=== PATIENT | male | born 1945 | race Caucasian/White ===

== ENCOUNTER → 2019-05-14 09:12 | Outpatient (CLI) | payer OTHER, SELFPAY ==
[2019-05-14 10:41] LABS: Hemoglobin A1C% w Est Avg Glu 4.9 % (4.0-6.0)
== END ==
PROVIDERS: PCP Internal Medicine; Visit Provider Internal Medicine
DX: E11.9 Type 2 diabetes mellitus without complications (principal)
CPT/HCPCS: 36415; 83036